=== PATIENT | female | born 1975 | race Caucasian/White ===

== ENCOUNTER 2022-03-05 14:51 | Emergency (ER) | payer OTHER ==
[~2022-03-05] VITALS: Ht 157.5 cm; Wt 88.5 kg
[~2022-03-05 14:51] MED LIST: HUMIRA40 MG/0.8; KETO10TA2 PO; LAMICTAL100 MG; MEDROL4 MG
[2022-03-05] MEDS ORDERED: METOTREXATE (15:13)
[2022-03-05] MEDS ORDERED: AMBIEN10 MG PO (15:13)
== END 2022-03-05 18:35 | disposition home or self-care (01) ==
LOC: ER 14:51
DX: R10.9 Unspecified abdominal pain (principal)